=== PATIENT | female | born 1935 | race Caucasian/White ===

== ENCOUNTER 2018-02-20 11:22 | Emergency (ER) | payer OTHER ==
[~2018-02-20] VITALS: Ht 167.6 cm; Wt 72.6 kg
[~2018-02-20 11:22] MED LIST: NORCO 5-325 TA1 EACH PO
[2018-02-20] MEDS ORDERED: MOBIC7.5 MG PO (11:33)
[2018-02-20 12:03] LABS: ABSOLUTE NEUTROPHILS 7.5 thou/uL (1.4-8.2); BASOPHILS 0.8 % (0.0-2.0); EOSINOPHILS 0.4 % (0.0-3.0); HEMATOCRIT 40.9 % (37.0-47.0); HEMOGLOBIN 14.1 gm/dL (12.0-15.0); MCH 31.5 pg (26.0-34.0); MCHC 34.4 g/dL (28.0-37.0); MCV 91.6 fL (80.0-100.0); MONOCYTES 7.3 % (1.0-8.0); PLATELET COUNT 200 thou/uL (150-400); POLYS 80.5 % (36.0-66.0); RBC 4.47 mil/uL (4.20-5.00); WBC 9.3 thou/uL (4.0-11.0)
[2018-02-20 12:10] LABS: POTASSIUM 3.7 mmol/L (3.5-5.1)
[2018-02-20 13:32] VITALS: BP 150/70
== END 2018-02-20 13:34 | disposition home or self-care (01) ==
LOC: ER 11:22
PROVIDERS: Emergency Medicine
DX: M17.11 Unilateral primary osteoarthritis, right knee (principal)

== ENCOUNTER 2018-03-07 10:56 | Emergency (ER) | payer OTHER ==
[~2018-03-07] VITALS: Ht 167.6 cm; Wt 72.6 kg
[~2018-03-07 10:56] MED LIST changes: +MOBIC7.5 MG PO
[2018-03-07 11:06] VITALS: BP 184/66
[2018-03-07] MEDS ORDERED: SULINDAC 150 M150 MG PO (11:54)
== END 2018-03-07 12:05 | disposition home or self-care (01) ==
LOC: ER 10:56
DX: M17.0 Bilateral primary osteoarthritis of knee (principal); G89.29 Other chronic pain; G30.9 Alzheimer's disease, unspecified; F02.80 Dementia in other diseases classified elsewhere, unspecified severity, without behavioral disturbance, psychotic disturbance, mood disturbance, and anxiety

== ENCOUNTER 2019-10-10 11:16 | Inpatient (IN) | payer OTHER ==
[~2019-10-10] VITALS: Ht 165.1 cm; Wt 70.3 kg
[~2019-10-10 11:16] MED LIST changes: +SULINDAC 150 M150 MG PO
[2019-10-10 11:18] VITALS: BP 142/91
[2019-10-10 11:46] LABS: ABSOLUTE NEUTROPHILS 4.4 thou/uL (1.4-8.2); BASOPHILS 0.7 % (0.0-2.0); EOSINOPHILS 1.1 % (0.0-3.0); HEMATOCRIT 39.9 % (37.0-47.0); HEMOGLOBIN 13.3 gm/dL (12.0-15.0); LYMPHOCYTES 33.1 % (24.0-44.0); MCH 31.5 pg (26.0-34.0); MCHC 33.4 g/dL (28.0-37.0); MCV 94.4 fL (80.0-100.0); PLATELET COUNT 252 thou/uL (150-400); POLYS 58.1 % (36.0-66.0); RBC 4.23 mil/uL (4.20-5.00); RDW 13.1 % (10.5-14.5); WBC 7.5 thou/uL (4.0-11.0)
[2019-10-10 11:53] LABS: CALCIUM 9.5 mg/dL (8.5-10.1); CREATININE 0.9 mg/dL (0.6-1.0); POTASSIUM 3.7 mmol/L (3.5-5.1)
[2019-10-10 11:58] LABS: URINE BILIRUBIN NEGATIVE (Negative); URINE BLOOD TRACE (Negative); URINE CLARITY CLOUDY; URINE COLOR YELLOW; URINE GLUCOSE-RANDOM* NEGATIVE (Negative); URINE KETONES NEGATIVE (Negative); URINE LEUKOCYTES-REFLEX 2+ (Negative); URINE NITRITE-REFLEX POSITIVE (Negative); URINE PROTEIN (DIPSTICK) NEGATIVE (Negative); URINE SPECIFIC GRAVITY 1.015 (1.005-1.035); URINE UROBILINOGEN 0.2 E.U./dl (0.2-1.0)
[2019-10-10 11:59] LABS: ALBUMIN 4.1 g/dL (3.4-5.0); TOTAL BILIRUBIN 0.8 mg/dL (<0.1-1.0)
[2019-10-10 12:06] LABS: BACTERIA-REFLEX >30 Many /HPF (None Seen); CASTS None Seen /LPF (None Seen); CRYSTALS None Seen /LPF (None Seen); SQUAMOUS 4-10 Moderate /LPF (0-3); URINE RBC 0-2 Rare /HPF (0-2); WBC CLUMPS Few (None Seen)
[2019-10-10 13:43] VITALS: BP 142/91
[2019-10-10 13:52] VITALS: BP 121/31
[2019-10-10] MEDS ORDERED: QUETIAPINE FUMA50 MG PO (15:22)
[2019-10-10 20:20] VITALS: BP 114/72
[2019-10-11 04:20] VITALS: BP 125/96
[2019-10-11 05:41] LABS: ABSOLUTE NEUTROPHILS 2.8 thou/uL (1.4-8.2); BASOPHILS 0.7 % (0.0-2.0); EOSINOPHILS 2.2 % (0.0-3.0); HEMATOCRIT 39.4 % (37.0-47.0); HEMOGLOBIN 13.3 gm/dL (12.0-15.0); LYMPHOCYTES 43.8 % (24.0-44.0); MCH 31.7 pg (26.0-34.0); MCHC 33.6 g/dL (28.0-37.0); MCV 94.2 fL (80.0-100.0); MONOCYTES 7.1 % (1.0-8.0); PLATELET COUNT 231 thou/uL (150-400); POLYS 46.2 % (36.0-66.0); RBC 4.18 mil/uL (4.20-5.00); RDW 13.4 % (10.5-14.5); WBC 6.2 thou/uL (4.0-11.0)
[2019-10-11 06:01] LABS: CALCIUM 9.5 mg/dL (8.5-10.1); POTASSIUM 3.6 mmol/L (3.5-5.1)
[2019-10-11 09:22] VITALS: BP 103/68
[2019-10-11 16:12] VITALS: BP 179/91
[2019-10-11 19:20] VITALS: BP 167/123
[2019-10-12 04:05] VITALS: BP 190/95
[2019-10-12 07:26] VITALS: BP 151/73
[2019-10-12 15:38] VITALS: BP 137/86
[2019-10-12 19:11] VITALS: BP 139/88
[2019-10-12 22:03] VITALS: BP 139/88
[2019-10-13] VITALS (7 sets, daily range): BP systolic 120–149; BP diastolic 66–88
[2019-10-13] MEDS ORDERED: RISPERIDONE 00.25 MG PO (16:44)
[2019-10-13] MEDS ORDERED: SEROQUEL 50 MG50 MG PO (16:44)
[2019-10-13] MEDS ORDERED: KEFLEX500 M1 PO (16:48)
== END 2019-10-13 18:35 | disposition home or self-care (01) | DRG 689 ==
LOC: ER 11:16 → 4S 13:14 → EROBS 13:14 → 4S 14:24
PROVIDERS: Nurse Practitioner; Physician Assistant; ADMIT Internal Medicine
DX: N39.0 Urinary tract infection, site not specified (principal); G92 Toxic encephalopathy; F03.91 Unspecified dementia, unspecified severity, with behavioral disturbance; B96.1 Klebsiella pneumoniae [K. pneumoniae] as the cause of diseases classified elsewhere; F02.80 Dementia in other diseases classified elsewhere, unspecified severity, without behavioral disturbance, psychotic disturbance, mood disturbance, and anxiety; M17.0 Bilateral primary osteoarthritis of knee; R41.0 Disorientation, unspecified; R13.10 Dysphagia, unspecified; Z79.899 Other long term (current) drug therapy; Z79.891 Long term (current) use of opiate analgesic
CPT/HCPCS: 10195

== ENCOUNTER 2019-12-13 10:24 | Emergency (ER) | payer OTHER ==
[~2019-12-13] VITALS: Ht 165.1 cm; Wt 68.0 kg
[~2019-12-13 10:24] MED LIST changes: +KEFLEX500 M1 PO; +QUETIAPINE FUMA50 MG PO; +RISPERIDONE 00.25 MG PO; +SEROQUEL 50 MG50 MG PO
[2019-12-13 11:39] LABS: URINE BILIRUBIN NEGATIVE (Negative); URINE BLOOD NEGATIVE (Negative); URINE CLARITY CLEAR; URINE COLOR YELLOW; URINE GLUCOSE-RANDOM* NEGATIVE (Negative); URINE KETONES NEGATIVE (Negative); URINE LEUKOCYTES-REFLEX NEGATIVE (Negative); URINE NITRITE-REFLEX NEGATIVE (Negative); URINE PROTEIN (DIPSTICK) TRACE (Negative); URINE SPECIFIC GRAVITY >= 1.030 (1.005-1.035); URINE UROBILINOGEN 0.2 E.U./dl (0.2-1.0)
[2019-12-13 11:42] LABS: ABSOLUTE NEUTROPHILS 4.5 thou/uL (1.4-8.2); BASOPHILS 0.5 % (0.0-2.0); EOSINOPHILS 1.7 % (0.0-3.0); HEMATOCRIT 39.6 % (37.0-47.0); HEMOGLOBIN 13.4 gm/dL (12.0-15.0); LYMPHOCYTES 28.7 % (24.0-44.0); MCH 32.1 pg (26.0-34.0); MCHC 33.7 g/dL (28.0-37.0); MCV 95.1 fL (80.0-100.0); MONOCYTES 5.6 % (1.0-8.0); PLATELET COUNT 240 thou/uL (150-400); POLYS 63.5 % (36.0-66.0); RBC 4.17 mil/uL (4.20-5.00); RDW 13.8 % (10.5-14.5); WBC 7.1 thou/uL (4.0-11.0)
[2019-12-13 11:50] LABS: AMP/METHAMP Negative (Negative); BARBITURATES Negative (Negative); BENZODIAZEPINES Negative (Negative); COCAINE Negative (Negative); METHADONE Negative (Negative); OPIATES Negative (Negative); PCP Negative (Negative)
[2019-12-13 11:53] LABS: CALCIUM 9.3 mg/dL (8.5-10.1); POTASSIUM 3.6 mmol/L (3.5-5.1)
[2019-12-13 11:57] LABS: PROTIME 10.3 Seconds (9.3-11.4)
[2019-12-13 11:59] LABS: ALBUMIN 3.9 g/dL (3.4-5.0); TOTAL BILIRUBIN 0.9 mg/dL (<0.1-1.0); TOTAL PROTEIN 7.4 g/dL (6.4-8.2)
[2019-12-13 13:26] VITALS: BP 157/85
== END 2019-12-13 13:27 | disposition short-term general hospital (02) ==
LOC: ER 10:24
PROVIDERS: Emergency Medicine
DX: S62.102A Fracture of unspecified carpal bone, left wrist, initial encounter for closed fracture (principal); S72.002A Fracture of unspecified part of neck of left femur, initial encounter for closed fracture; I60.9 Nontraumatic subarachnoid hemorrhage, unspecified; F03.90 Unspecified dementia, unspecified severity, without behavioral disturbance, psychotic disturbance, mood disturbance, and anxiety; Z79.899 Other long term (current) drug therapy; W06.XXXA Fall from bed, initial encounter; Y93.89 Activity, other specified; Y92.098 Other place in other non-institutional residence as the place of occurrence of the external cause; Y99.8 Other external cause status